=== PATIENT | female | born 1990 | race Caucasian/White ===

== ENCOUNTER 2018-02-09 13:47 | Emergency (ER) | payer BC ==
[~2018-02-09 13:47] MED LIST: Iopamidol 370 76% 100 ML VIAL ONE
[2018-02-09 14:36] LABS: Bilirubin Negative (Negative); Blood, Urine Small (Negative); Glucose, Urine (Dipstick) Negative (Negative); Leukocyte Trace (Negative); Nitrite Negative (Negative); Protein, Urine (Dipstick) 30 mg/dL (Neg-Trace); Urobilinogen 0.2 mg/dL (0.2-1.0)
[2018-02-09 14:37] LABS: Clarity Hazy (Clear); Specific Gravity, Urine 1.006 (1.002-1.036)
[2018-02-09 14:43] LABS: Bacteria/HPF 1+ HPF (None Seen); WBC/HPF 0-3 HPF (0-3)
[2018-02-09] MEDS ORDERED: Morphine 10 MG/ML VIAL ONE (14:53)
[2018-02-09 15:07] LABS: ALT (SGPT) 10 U/L (8-55); AST (SGOT) 12 U/L (5-34); Albumin 3.4 g/dL (3.5-5.0); Alkaline Phosphatase 70 U/L (40-150); Anion Gap 15 mmol/L (10-20); BUN (Urea Nitrogen) 6 mg/dL (7.0-18.7); Bilirubin, Total 0.3 mg/dL (0.2-1.2); Calc. Creatinine Clearance 0 mL/min (70-130); Calcium 8.6 mg/dL (7.8-10.44); Carbon Dioxide 24 mmol/L (22-29); Chloride 97 mmol/L (98-107); Estimated GFR-MDRD 87; Globulin 3.2 g/dL (2.4-3.5); Glucose 91 mg/dL (70-105); Lipase 5 U/L (8-78); Potassium 3.2 mmol/L (3.5-5.1); Protein, Total 6.6 g/dL (6.0-8.3); Sodium 133 mmol/L (136-145)
[2018-02-09 15:11] LABS: Band 4 % (5-11); Eosinophils 1 % (0-10); Hemoglobin 11.2 g/dL (12.0-16.0); Hypochromia SLIGHT = 6-15 cells (100X) (0-5/hpf); Lymphocytes 12 % (21-51); MDiff Complete? YES; Mean Corpuscular HGB CONC 34.5 g/dL (32.0-36.0); Mean Corpuscular Hemoglobin 31.5 pg (27.0-31.0); Mean Corpuscular Volume 91.3 fl (81.0-99.0); Mean Platelet Volume 7.6 fL (7.4-10.4); Monocytes 11 % (0-10); Neutrophil 72 % (42-75); PLT Morphology Comment Appears Adequate; Platelet Count 150 thou/uL (130-400); RBC Distribution Width 13.4 % (11.5-14.5); Red Blood Cell (RBC) Count 3.55 mill/uL (4.20-5.40); White Blood Cell (WBC) Count 11.3 thou/uL (4.8-10.8)
[2018-02-09] MEDS ORDERED: Ibuprofen 600 MG TAB ONE (15:13)
[2018-02-09 15:59] LABS: Pregnancy Test - Urine (BHCG) Negative (Negative); Pregu Control Background? CLEAR/WHITE (CLR/WHITE); Pregu Control Bar Appear? YES (CONTROL BAR); Specific Gravity 1.006 (1.002-1.036)
[2018-02-09] MEDS ORDERED: cefTRIAXone\\ROCEPHIN 2 GM VIAL ONE (16:38)
[2018-02-09] MEDS ORDERED: Sodium Chloride 0.9% 100 ML ONE (16:39)
--- NOTE | 2018-02-09 17:03 | CT ---
CT OF THE ABDOMEN AND PELVIS WITH IV CONTRAST 02/09/18 INDICATION: History of abdominal pain with fever. FINDINGS: There is edematous changes of the right kidney with differential enhancement consistent with pyelonep hritis. Perinephric inflammatory stranding. The left kidney is normal appearing. 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 Pancreas, spleen, and liver appear within normal limits. There is a normal appendix in the right lower quadrant. There are bilateral follicular cysts. There i s a gas filled tampon in the vaginal vault. The bladder, rectum, and perirectal soft tissues are unr emarkable. Unopacified large and small bowel appear within normal limits. There is a fat containing paraumbilica l hernia. There are small fat containing anterior abdominal wall hernias present. No acute osseous abnormality is evident. IMPRESSION: 1. Findings of right sided pyelonephritis. 2. Other findings as above. POS: [facility]
== END 2018-02-09 17:22 | disposition home or self-care (01) ==
LOC: SCSER 13:47
DX: N12 Tubulo-interstitial nephritis, not specified as acute or chronic (principal); I10 Essential (primary) hypertension; F17.210 Nicotine dependence, cigarettes, uncomplicated
CPT/HCPCS: 74177; 80053; 81003; 81015; 81025; 83605; 83690; 85025; 87077; 87086; 87186; 96361; 96365; 96375; J0696; J2270; J7050

== ENCOUNTER 2018-04-17 20:46 | Emergency (ER) | payer BC, SELFPAY ==
[2018-04-17] MEDS ORDERED: Adacel (T-DAP) 0.5 ML VIAL ONE (21:27)
--- NOTE | 2018-04-17 21:58 | RAD ---
LEFT HAND FOURTH FINGER THREE VIEWS: HISTORY: Injury to left finger with pain. FINDINGS: A ring was unable to be removed and does obscure portions of the proximal phalanx. Otherwise, there is no osseous abnormality. No fracture or dislocation. No soft tissue abnormality identified. IMPRESSION: No acute abnormality. POS: [facility]
== END 2018-04-17 22:30 | disposition home or self-care (01) ==
LOC: SCSER 20:46
DX: S61.235A Puncture wound without foreign body of left ring finger without damage to nail, initial encounter (principal); I10 Essential (primary) hypertension; F41.9 Anxiety disorder, unspecified; F17.210 Nicotine dependence, cigarettes, uncomplicated; W45.8XXA Other foreign body or object entering through skin, initial encounter
CPT/HCPCS: 90471; 90715